=== PATIENT | female | born 1990 | race African-American/Black ===

== ENCOUNTER 2017-11-08 13:50 | Emergency (ER) | payer OTHER ==
[~2017-11-08] VITALS: Ht 167.6 cm; Wt 104.3 kg
[2017-11-08 14:50] VITALS: BP 154/72
[2017-11-08] MEDS ORDERED: MOBIC15 MG PO (15:43)
== END 2017-11-08 16:46 | disposition home or self-care (01) ==
LOC: ER 13:50
DX: S83.92XA Sprain of unspecified site of left knee, initial encounter (principal); X58.XXXA Exposure to other specified factors, initial encounter; Y93.89 Activity, other specified; Y92.89 Other specified places as the place of occurrence of the external cause; Y99.8 Other external cause status